=== PATIENT | female | born 1975 | race African-American/Black ===

== ENCOUNTER 2018-04-21 20:16 | Emergency (ER) | payer OTHER ==
[2018-04-21 20:19] VITALS: BP 139/95; PULSE 92; TEMP 98.1; BMI 25.7
[2018-04-21] MEDS ORDERED: RANITIDINE HCL 150 MG TABLET (FP) PO ONE (22:05)
[2018-04-21] MEDS ORDERED: KETOROLAC TROMETHAMINE 60 MG/2 ML VIAL IM ONE (22:05)
[2018-04-21] MEDS ORDERED: RANITIDINE HCL 150 MG TABLET (FP) ONE (22:06)
[2018-04-21] MEDS ORDERED: KETOROLAC TROMETHAMINE 30 MG/1 ML VIAL ONE (22:06)
--- NOTE | 2018-04-21 22:09 | PDOC ---
History of Present Illness - General Chief Complaint: Back Pain Stated Complaint: BACK PAIN Time Seen by Provider: 04/21/18 22:03 - History of Present Illness Initial Comments: 5-year-old healthy female presents for evaluation of lower back pain posterior lateral left leg radiculopathy. She states the pain been going on for a couple days now. She describes her pain as achy exacerbated with activity relieved with rest and with the above-mentioned radiation. No prior problems like this in the past. 04/21/18 22:05 Past History - Past Medical History Allergies/Adverse Reactions: Allergies Allergy/AdvReac Type Severity Reaction Status Date / Time No Known Allergies Allergy Verified 04/21/18 20:18 Home Medications: Ambulatory Orders Cyclobenzaprine HCl [Flexeril 10 mg] 10 mg PO HS PRN #10 tablet 04/21/18 Methylprednisolone [Medrol Dose Que] 4 mg PO ASDIR #21 tablet 04/21/18 Asthma: No Cancer: No Cardiac Disorders: No COPD: No Diabetes: No HTN: No Seizures: No Thyroid Disease: No - Suicide/Smoking/Psychosocial Hx Smoking History: Never smoked Have you smoked in the past 12 months: No Hx Alcohol Use: No Drug/Substance Use Hx: No Hx Substance Use Treatment: No Review of Systems - Review of Systems Musculoskeletal: Yes: See HPI, Back Pain All Other Systems: Reviewed and Negative *Physical Exam - Vital Signs Last Vital Signs Temp Pulse Resp BP Pulse Ox 98.1 F 92 H 18 139/95 100 04/21/18 20:17 04/21/18 20:17 04/21/18 20:17 04/21/18 20:17 04/21/18 20:17 - Physical Exam Comments: Lumbar spine is normal skin color and temperature. She has decreased range of motion. Right and left paralumbar musculature spasm. She has 5 out of 5 strength in bilateral lower extremities including EHL plantar and dorsiflexion knee extension and hip flexion bilaterally. She has a positive straight leg raise test on the right producing lower back pain with right leg radicular symptoms. Her thighs and calves are soft and nontender. She has no gross sensorimotor deficits. She is neurovascularly intact. 04/21/18 22:06 Medical Decision Making - Medical Decision Making Lumbar radiculopathy. I'll treat her with a Medrol Dosepak and Flexeril. I'll have her follow-up with spine surgery for further evaluation and treatment options. 04/21/18 22:06 04/21/18 22:07 Of note she denies any loss of bowel or bladder function. *DC/Admit/Observation/Transfer Diagnosis at time of Disposition: Lumbar radiculopathy - Discharge Dispostion Disposition: HOME Condition at time of disposition: Stable Decision to Admit order: No - Referrals Referrals: Renee Ivey MD [Primary Care Provider] - Lebron Law MD [Staff Physician] - German Law MD [Staff Physician] - - Patient Instructions Printed Discharge Instructions: Lumbar Radiculopathy, DI for Lumbar Radiculopathy Additional Instructions: Review treat your pain in the emergency room with a strong anti-inflammatory as well as a medicine to protect her stomach. I prescribed few steroid pack which will help with her back pain as well as a muscle relaxer. It's important few not to take any anti-inflammatories while on the steroid pack. The only other medication you can take is Tylenol. And a muscle relaxer I prescribed few. Return to the emergency room if your symptoms worsen or go unresolved prior to follow-up with orthopedic spine surgery. - Post Discharge Activity
== END 2018-04-21 22:14 | disposition home or self-care (01) ==
LOC: JERFT 20:16
PROC: 3E0233Z Introduction of Anti-inflammatory into Muscle, Percutaneous Approach (ICD-10-PCS; principal; 2018-04-21)
DX: M54.16 Radiculopathy, lumbar region (principal)
CPT/HCPCS: 96372; 99281-25

== ENCOUNTER 2019-05-29 16:02 | Emergency (ER) | payer OTHER ==
--- NOTE | 2019-05-29 16:09 | PDOC ---
Rapid Medical Evaluation Chief Complaint: Pain Time Seen by Provider: 05/29/19 16:08 Medical Evaluation: Allergies Allergy/AdvReac Type Severity Reaction Status Date / Time No Known Allergies Allergy Verified 05/29/19 16:07 05/29/19 16:08 HPI: R foot pain x3 days no fevers PE: No gross deficits ORDERS: nothing Discharge Disposition - Diagnosis Right foot pain - Referrals - Patient Instructions - Post Discharge Activity
[2019-05-29 16:10] VITALS: BP 128/82; PULSE 82; TEMP 98.5; BMI 23.1
[2019-05-29] MEDS ORDERED: IBUPROFEN 600 MG TABLET (FP) PO ONE ×2 (16:28)
--- NOTE | 2019-05-29 16:51 | PDOC ---
History of Present Illness - General Chief Complaint: Pain Stated Complaint: RT FOOT PAIN Time Seen by Provider: 05/29/19 16:08 History Source: Patient Exam Limitations: No Limitations - History of Present Illness Initial Comments: 05/29/19 16:29 HISTORY OF PRESENT ILLNESS: 43-year-old woman denies medical history presents emergency Department with atraumatic right foot swelling and pain for the past 3 days. Patient reports she woke up with pain and swelling to the foot which is worsened with ambulation. Patient denies any medications or change in medications, recent travel or prolonged periods of inactivity. No recent travel or sick contacts. PAST MEDICAL HISTORY: Denies past medical history SURGICAL HISTORY: Denies ALLERGIES: No known drug allergies REVIEW OF SYSTEMS General/Constitutional: Denies fever or chills. Denies weakness, weight change. HEENT: Denies change in vision. Denies ear pain or discharge. Denies sore throat. Cardiovascular: Denies chest pain or shortness of breath. Respiratory: Denies cough, wheezing, or hemoptysis. Gastrointestinal: Denies nausea, vomiting, diarrhea or constipation. Denies rectal bleeding. Genitourinary: Denies dysuria, frequency, or change in urination. Musculoskeletal: see HPI Skin and breasts: Denies rash or easy bruising. Neurologic: Denies headache, vertigo, loss of consciousness, or loss of sensation. Psychiatric: Denies depression or anxiety. Endocrine: Denies increased thirst. Denies abnormal weight change. Hematologic/Lymphatic: Denies anemia, easy bleeding, or history of blood clots. Allergic/Immunologic: Denies hives or skin allergy. Denies latex allergy. PHYSICAL EXAM General Appearance: Well-appearing, appropriately dressed. No apparent distress , no intoxication. Respiratory/Chest: Lungs CTAB. No shortness of breath, chest tenderness, respiratory distress, accessory muscle use. No crackles, rales, rhonchi, stridor , wheezing, dullness Cardiovascular: RRR. S1, S2. No JVD, murmur, bradycardia, tachycardia. Vascular Pulses: Dorsalis-Pedis (R): 2+, Dorsalis-Pedis (L): 2+ Musculoskeletal/Extremities: Swelling present to the dorsum of the right foot extending from the Lisfranc region distally. Swelling is nonpitting. No erythema is noted. Full range of motion of ankle and toes of the right foot. No bony tenderness, crepitus, step-offs or deformities noted. No calf tenderness, erythema or cords present. Negative Homans sign. Integumentary: Appropriate color, dry, warm. No cyanosis, erythema, jaundice or rash Neurologic: cbx operator II-XII intact. Fully oriented, alert. Appropriate mood/affect. Motor strength 5/5. No appreciable EOM palsy, facial droop or sensory deficit. Past History - Past Medical History Allergies/Adverse Reactions: Allergies Allergy/AdvReac Type Severity Reaction Status Date / Time No Known Allergies Allergy Verified 05/29/19 16:07 Home Medications: Ambulatory Orders NK [No Known Home Medication] 05/29/19 Asthma: No Cancer: No Cardiac Disorders: No COPD: No Diabetes: No HTN: No Seizures: No Thyroid Disease: No - Suicide/Smoking/Psychosocial Hx Smoking History: Never smoked Have you smoked in the past 12 months: No Hx Alcohol Use: No Drug/Substance Use Hx: No Hx Substance Use Treatment: No *Physical Exam - Vital Signs Last Vital Signs Temp Pulse Resp BP Pulse Ox 98.5 F 82 17 128/82 98 05/29/19 16:08 05/29/19 16:08 05/29/19 16:08 05/29/19 16:08 05/29/19 16:08 ED Treatment Course - RADIOLOGY Radiology Studies Ordered: Category Date Time Status DUPLEX VASCUL US-1 LEG [US] Stat Ultrasound 05/29/19 16:28 Ordered Medical Decision Making - Medical Decision Making 05/29/19 16:51 A/P: 43-year-old woman with atraumatic right foot swelling for 3 days Duplex Doppler of the lower extremity to rule out DVT Motrin 600 mg orally Reassess 05/29/19 17:27 Ultrasound as read by Dr. Bae: No evidence of deep vein thrombosis. I will discharge the patient home to follow-up with podiatry as needed. *DC/Admit/Observation/Transfer Diagnosis at time of Disposition: Right foot pain - Discharge Dispostion Disposition: HOME Condition at time of disposition: Stable Decision to Admit order: No - Referrals Referrals: Richard Nieves MD [Staff Physician] - - Patient Instructions Additional Instructions: Rest. Take Tylenol or Motrin as needed for pain. Follow manufacturers instructions for appropriate dosage. Apply ice for 20 minutes and removed for at least 20 minutes before reapplying the ice. Keep Magdiel wrap on your ankle as much as possible to help decrease some of the swelling control pain. Whenever possible keep her foot elevated to decrease swelling to your ankle. You've been given the number for manufacturing coordinator. If symptoms do not resolve within the next 7 days call for further evaluation. Return to emergency department for discoloration of the foot, numbness or tingling to the foot, worsening pain, or any other concerns. Thank you very much for choosing us to provide your emergent healthcare needs. - Post Discharge Activity Forms/Work/School Notes: Back to Work
== END 2019-05-29 17:32 | disposition home or self-care (01) ==
LOC: JERFT 16:02
DX: M79.671 Pain in right foot (principal)
CPT/HCPCS: 93971-TC; 99282-25

== ENCOUNTER 2019-05-31 15:50 | Emergency (ER) | payer OTHER ==
[2019-05-31 15:54] VITALS: BP 125/73; PULSE 92; TEMP 98.8; BMI 10.8
--- NOTE | 2019-05-31 15:55 | PDOC ---
Rapid Medical Evaluation Time Seen by Provider: 05/31/19 15:51 Medical Evaluation: Allergies Allergy/AdvReac Type Severity Reaction Status Date / Time No Known Allergies Allergy Verified 05/29/19 16:07 05/31/19 15:54 I have performed a brief in-person evaluation of this patient. The patient presents with a chief complaint of: atraumatic right foot pain Pertinent physical exam findings: swelling from right mid-foot to toes. 2+Dp pulses I have ordered the following: xray, ice The patient will proceed to the ED for further evaluation. Discharge Disposition - Diagnosis Right foot pain - Referrals - Patient Instructions - Post Discharge Activity
[2019-05-31] MEDS ORDERED: IBUPROFEN 600 MG TABLET (FP) PO ONE ×2 (16:15)
--- NOTE | 2019-05-31 16:24 | PDOC ---
History of Present Illness - General Chief Complaint: Pain Stated Complaint: RT. FOOT PAIN Time Seen by Provider: 05/31/19 15:51 History Source: Patient - History of Present Illness Initial Comments: 05/31/19 16:58 Chief complaint: Foot pain and swelling Patient is a 43-year-old female with no significant medical history with a several day history of right foot pain and swelling. Patient was seen here 2 days ago, had negative ultrasound. Patient has not been taking pain medicine but noticed that foot is more painful and swollen. Patient has no fever or specific mechanism for pain. He shouldn't is ambulatory, wearing flip-flops GENERAL/CONSTITUTIONAL: No fever, weakness. dizziness HEAD, EYES, EARS, NOSE AND THROAT: No change in vision. No ear pain or discharge. No sore throat. CARDIOVASCULAR: No chest pain RESPIRATORY: No shortness of breath or cough GASTROINTESTINAL: No pain, nausea, vomiting, diarrhea or constipation GENITOURINARY: No dysuria MUSCULOSKELETAL: + Right foot, No neck or back pain SKIN: No rash NEUROLOGIC: No headache, vertigo, loss of consciousness, or loss of sensation. GENERAL: The patient is awake, alert, and fully oriented, in no acute distress. HEAD: Normal with no signs of trauma. EYES: Pupils equal, round and reactive to light, sclera anicteric, conjunctiva clear. ENT: pharynx: no erythema, no exudate, uvula midline NECK: supple CHEST: clear, nontender, rr ABD: soft, nontender BACK: no tenderness or signs of injury EXTREMITIES: Right foot with mild dorsal swelling proximal to the phalanges over the distal metal tarsal area, no wound openings, no gross signs of cellulitis, patient has tenderness, patient is able to move toes, neurovascular intact. Rest of extremities, normal range of motion, no edema. NEUROLOGICAL: Normal speech, normal gait. SKIN: Warm, Dry Past History - Past Medical History Allergies/Adverse Reactions: Allergies Allergy/AdvReac Type Severity Reaction Status Date / Time No Known Allergies Allergy Verified 05/29/19 16:07 Home Medications: Ambulatory Orders Clindamycin [Cleocin -] 300 mg PO TID #21 capsule 05/31/19 Naproxen [Naprosyn] 500 mg PO BID #28 tablet 05/31/19 Asthma: No Cancer: No Cardiac Disorders: No COPD: No Diabetes: No HTN: No Seizures: No Thyroid Disease: No - Suicide/Smoking/Psychosocial Hx Smoking History: Never smoked Have you smoked in the past 12 months: No Hx Alcohol Use: No Drug/Substance Use Hx: No Hx Substance Use Treatment: No *Physical Exam - Vital Signs Last Vital Signs Temp Pulse Resp BP Pulse Ox 98.8 F 92 H 16 125/73 97 05/31/19 15:52 05/31/19 15:52 05/31/19 15:52 05/31/19 15:52 05/31/19 15:52 Medical Decision Making - Medical Decision Making 05/31/19 17:00 Healthy 43-year-old female with several days of right foot pain and swelling, no gross cellulitis, otherwise feels well, some tenderness and swelling, no open wounds. Patient had negative ultrasound 2 days ago, patient had x-ray ordered, no acute findings on the x-ray. Patient has not taken any pain medicine. Given increase in pain and swelling, will prescribe Naprosyn and will cover for chance of infection, clindamycin. Patient will follow-up with her monotyper Discussed issues, findings, results, applicable medications and treatments and follow-up. All these were understood and all questions were answered *DC/Admit/Observation/Transfer Diagnosis at time of Disposition: Right foot pain - Discharge Dispostion Disposition: HOME Condition at time of disposition: Stable Decision to Admit order: No - Prescriptions Prescriptions: Clindamycin [Cleocin -] 300 mg PO TID #21 capsule Naproxen [Naprosyn] 500 mg PO BID #28 tablet - Referrals - Patient Instructions Additional Instructions: It is not clear what is causing her foot pain. It is very important to keep your feet clean and look for any wounds. Elevate your foot and wear supportive shoe. Take the Naprosyn one tablet every 12 hours for pain and inflammation, take the clindamycin 300 mg every 8 hours or 7 days. Return to the ER if fever or foot is getting much more swollen and painful instead of getting better. Follow-up with monotyper - Post Discharge Activity
== END 2019-05-31 16:26 | disposition home or self-care (01) ==
LOC: JERFT 15:50
DX: M79.671 Pain in right foot (principal)
CPT/HCPCS: 73610-TC-RT-FY; 73630-TC-RT-FY; 99282-25

== ENCOUNTER 2020-11-29 09:23 | Emergency (ER) | payer OTHER ==
[2020-11-29 09:31] VITALS: BP 130/81; PULSE 92; TEMP 98; BMI 27.8
[2020-11-29] MEDS ORDERED: KETOROLAC TROMETHAMINE 60 MG/2 ML VIAL IM ONE (10:10)
[2020-11-29] MEDS ORDERED: LIDOCAINE 5% TOPICAL PATCH ONE (10:10)
[2020-11-29] MEDS ORDERED: LIDOCAINE 5% TOPICAL PATCH TP ONE (10:10)
[2020-11-29] MEDS ORDERED: KETOROLAC TROMETHAMINE 30 MG/1 ML VIAL ONE (10:11)
== END 2020-11-29 10:31 | disposition home or self-care (01) ==
LOC: JERFT 09:23 → JER 09:23 → JERFT 10:31
PROC: 3E0233Z Introduction of Anti-inflammatory into Muscle, Percutaneous Approach (ICD-10-PCS; principal; 2020-11-29)
DX: M25.511 Pain in right shoulder (principal)
CPT/HCPCS: 99284-25

== ENCOUNTER 2023-10-22 10:54 | Emergency (ER) | payer OTHER ==
[2023-10-22 11:00] VITALS: BP 155/92; PULSE 89; RESP 18; TEMP 98.8; BMI 28.5
[2023-10-22 12:42] LABS: BASO % 1.1 % (0-2.0); EOS % 0.7 % (0-4.5); HEMATOCRIT 35.3 % (32.4-45.2); HEMOGLOBIN 11.6 GM/dL (10.7-15.3); LYMPH % 24.2 % (8-40); MCH 29.2 pg (25.7-33.7); MCHC 32.9 g/dl (32.0-36.0); MEAN CELL VOLUME 88.7 fl (80-96); MEAN PLT VOLUME 9.2 fl (7.5-11.1); MONO % 9.5 % (3.8-10.2); NEUT % 64.5 % (42.8-82.8); PLATELET COUNT 194 10^3/uL (134-434); RBC 3.98 M/mm3 (3.60-5.2); RDW 13.7 % (11.6-15.6); WHITE BLOOD COUNT 6.9 K/mm3 (4.0-10.0)
[2023-10-22 13:03] LABS: POTASSIUM 4.3 mmol/L (3.5-5.1)
[2023-10-22 13:06] LABS: CALCIUM 9.1 mg/dL (8.5-10.1)
[2023-10-22 13:07] LABS: BLOOD UREA NITROGEN 10.1 mg/dL (7-18)
[2023-10-22 13:10] LABS: CREATININE 0.8 mg/dL (0.55-1.3)
[2023-10-22 13:12] LABS: BILIRUBIN,TOTAL 0.4 mg/dL (0.2-1)
[2023-10-22 13:24] LABS: EPI CELLS 23 /uL (0-25.1); HYALINE CASTS 0 /uL (0-3.1); PH,URINE 6.5 (5.0-8.0); URINE APPEARANCE CLOUDY; URINE BACTERIA >9,000 /uL (0-1359); URINE BILIRUBIN NEGATIVE (NEGATIVE); URINE COLOR YELLOW; URINE GLUCOSE (UA) NEGATIVE (NEGATIVE); URINE KETONE NEGATIVE (NEGATIVE); URINE LEUK ESTERASE TRACE (NEGATIVE); URINE NITRITE POSITIVE (NEGATIVE); URINE PROTEIN NEGATIVE (NEGATIVE); URINE RBC 6 /uL (0-23.9); URINE WBC 13 /uL (0-25.8)
[2023-10-22 13:26] LABS: HCG,QUALITATIVE URINE Negative
[2023-10-22] MEDS ORDERED: KETOROLAC TROMETHAMINE 30 MG/1 ML VIAL IM ONE (16:03)
[2023-10-22] MEDS ORDERED: ACETAMINOPHEN INJECTION 100 ML IVPB ONE (16:03)
[2023-10-22] MEDS ORDERED: ACETAMINOPHEN 325 MG TABLET (FP) PO ONE (16:03)
[2023-10-22] MEDS ORDERED: ACETAMINOPHEN 325 MG TABLET (FP) ONE (16:05)
[2023-10-22] MEDS ORDERED: KETOROLAC TROMETHAMINE 30 MG/1 ML VIAL ONE (16:06)
== END 2023-10-22 19:01 | disposition home or self-care (01) ==
LOC: JER 10:54
PROC: 3E033NZ Introduction of Analgesics, Hypnotics, Sedatives into Peripheral Vein, Percutaneous Approach (ICD-10-PCS; principal; 2023-10-22)
PROC: 3E0233Z Introduction of Anti-inflammatory into Muscle, Percutaneous Approach (ICD-10-PCS; 2023-10-22)
DX: S20.212A Contusion of left front wall of thorax, initial encounter (principal); R55 Syncope and collapse; W01.198A Fall on same level from slipping, tripping and stumbling with subsequent striking against other object, initial encounter; Y92.009 Unspecified place in unspecified non-institutional (private) residence as the place of occurrence of the external cause
CPT/HCPCS: 36415; 70450-TC; 71046-TC-FY; 71101-TC-LT-FY; 80053; 81003; 84484; 84703; 85025; 93005; 93010; 99285-25

== ENCOUNTER 2024-02-03 23:23 | Emergency (ER) | payer OTHER ==
[2024-02-03 23:33] VITALS: BP 134/85; PULSE 81; RESP 16; TEMP 97.9; BMI 28.5
[2024-02-03] MEDS ORDERED: ACETAMINOPHEN 500 MG TABLET (FP) ONE (23:51)
[2024-02-03] MEDS: ACETAMINOPHEN 500 MG TABLET (FP) PO ONE (23:54)
== END 2024-02-04 01:41 | disposition home or self-care (01) ==
LOC: JER 23:23
DX: M79.671 Pain in right foot (principal)
CPT/HCPCS: 73610-TC-RT-FY; 73630-TC-RT-FY; 99283-25

== ENCOUNTER 2024-09-13 12:11 | Emergency (ER) | payer OTHER ==
[2024-09-13 12:18] VITALS: TEMP 98.1; BMI 28.6
[2024-09-13] MEDS ORDERED: LIDOCAINE 4% PATCH TP ONE (13:47)
[2024-09-13] MEDS ORDERED: KETOROLAC TROMETHAMINE 30 MG/1 ML VIAL ONE (13:47)
[2024-09-13 13:54] LABS: EPI CELLS >36 /uL (0-25.1); HYALINE CASTS 1 /uL (0-3.1); PH,URINE 6.5 (5.0-8.0); URINE APPEARANCE CLEAR; URINE BACTERIA 723 /uL (0-1359); URINE BILIRUBIN NEGATIVE (NEGATIVE); URINE COLOR YELLOW; URINE GLUCOSE (UA) NEGATIVE (NEGATIVE); URINE KETONE NEGATIVE (NEGATIVE); URINE LEUK ESTERASE TRACE (NEGATIVE); URINE NITRITE NEGATIVE (NEGATIVE); URINE PROTEIN NEGATIVE (NEGATIVE); URINE RBC 9 /uL (0-23.9); URINE UROBILINOGEN 0.2 mg/dL (0.2-1.0); URINE WBC 16 /uL (0-25.8)
[2024-09-13 13:55] LABS: HCG,QUALITATIVE URINE Negative
[2024-09-13] MEDS: LIDOCAINE 4% PATCH TP ONE (14:07)
[2024-09-13] MEDS: KETOROLAC TROMETHAMINE 30 MG/1 ML VIAL IM ONE (14:07)
[2024-09-13 14:37] LABS: BASO % 0.7 % (0-2.0); EOS % 0.8 % (0-4.5); HEMATOCRIT 37.5 % (32.4-45.2); HEMOGLOBIN 12.2 GM/dL (10.7-15.3); LYMPH % 40.4 % (8-40); MCH 28.7 pg (25.7-33.7); MCHC 32.6 g/dl (32.0-36.0); MEAN CELL VOLUME 88.2 fl (80-96); MEAN PLT VOLUME 10.7 fl (7.5-11.1); MONO % 8.2 % (3.8-10.2); NEUT % 49.9 % (42.8-82.8); PLATELET COUNT 204 10^3/uL (134-434); RBC 4.26 M/mm3 (3.60-5.2); RDW 13.8 % (11.6-15.6); WHITE BLOOD COUNT 6.2 K/mm3 (4.0-10.0)
[2024-09-13 15:07] LABS: POTASSIUM 3.8 mmol/L (3.5-5.1)
[2024-09-13 15:08] LABS: CALCIUM 9.5 mg/dL (8.5-10.1)
[2024-09-13 15:10] VITALS: BP 118/80; PULSE 72; RESP 16
[2024-09-13 15:10] LABS: ALBUMIN 4.2 g/dl (3.4-5.0); BLOOD UREA NITROGEN 11.2 mg/dL (7-18)
[2024-09-13 15:13] LABS: CREATININE 0.9 mg/dL (0.55-1.3)
[2024-09-13 15:15] LABS: TOT PROT 8.4 g/dl (6.4-8.2)
[2024-09-13 15:16] LABS: BILIRUBIN,TOTAL 0.4 mg/dL (0.2-1)
[2024-09-13 18:47] LABS: HIV INTERPRETATION NEGATIVE (NEGATIVE)
[2024-09-13] MEDS ORDERED: LIDOCAINE PATCH REMOVAL MC ONE (22:00)
== END 2024-09-13 15:29 | disposition home or self-care (01) ==
LOC: JERFT 12:11
PROC: 3E0233Z Introduction of Anti-inflammatory into Muscle, Percutaneous Approach (ICD-10-PCS; principal; 2024-09-13)
DX: M54.50 Low back pain, unspecified (principal); M62.830 Muscle spasm of back
CPT/HCPCS: 36415; 72100-TC-FY; 80053; 81003; 84703; 85025; 86803; 87086; 87389; 99284-25